=== PATIENT | female | born 1945 | race Asian ===

== ENCOUNTER 2020-04-15 09:49 | Emergency (ER) | payer OTHER ==
[~2020-04-15] VITALS: Ht 165.1 cm; Wt 61.2 kg
[2020-04-15 10:03] VITALS: BP 125/95
[2020-04-15] MEDS ORDERED: KETOROLAC TROMETHAMINE 15 MG/ML VIAL ONE (10:52)
[2020-04-15] MEDS ORDERED: KETOROLAC TROMETHAMINE INJ 30 MG/ML VIAL IM ONE (11:00)
--- NOTE | 2020-04-15 11:42 | NUR ---
Patient discharged to home in stable condition. Written and verbal after care instructions given. Patient verbalizes understanding of instruction.
--- NOTE | 2020-04-17 14:36 | NUR ---
LEFT A MESSAGE FOR A CALL BACK AT [phone] FOR COVID RESULT
== END 2020-04-15 11:42 | disposition home or self-care (01) ==
LOC: ER 09:57
DX: U07.1 COVID-19 (principal); R43.9 Unspecified disturbances of smell and taste; R51.9 Headache, unspecified; I10 Essential (primary) hypertension; E11.9 Type 2 diabetes mellitus without complications
CPT/HCPCS: 96372; 99283; C9803; J1885; U0003